=== PATIENT | male | born 1965 | race Caucasian/White ===

== ENCOUNTER 2016-08-13 05:50 | Day surgery (SDC) | payer OTHER ==
--- NOTE | 2016-08-12 14:40 | HP ---
DATE OF CLINIC: 08/07/2016 KALEE NERI : 1965 PLANNED PROCEDURE: Left Knee Arthroscopic Partial Medial and Partial Lateral Meniscectomies DATE OF SURGERY: August 13, 2016 SURGEON: Dominguez Walsh M.D. HISTORY OF PRESENT ILLNESS Kalee Neri is a 51 year old male. * Medication list reviewed with patient allergy list reviewed with patient. * Tried Physical Therapy Last visit was 05/08/16 @ [facility] in [place] * Has not tried NSAIDS * Has not tried Injections This is a 50-year-old male who complains of left knee pain. 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 He has had mechanical symptoms and pain in this knee since that time with multiple episodes of that kind of giving way and he has been concern that he is going to fall down some stairs. Most of his pain is over the medial side of his knee both along the medial joint line and the posterior medial knee he rates it a 5/10. He is taking some occasional anti-inflammatories without a lot of relief from his symptoms. He has also been to physical therapy at [facility] and again this has not given him significant relief. He has had a little bit of pain in the knee. Prior to this, but nothing like the mechanical symptoms that he is having at this point. After discussion and review of treatment options, both operative and non-operative, she has elected to proceed with surgery and presents today preoperatively. PAST MEDICAL AND SURGICAL HISTORY: His past medical history significant for type 2 diabetes which is fairly well controlled at this point. He has cut back on his meds recently. He also has a history of some numbness and tingling around this knee as well as a history of high blood pressure which is treated medically. CURRENT MEDICATION * Gemfibrozil 600 MG Tablet 1 once a day 30 days, 0 refills * Lisinopril 5 MG Tablet 1 once a day 30 days, 0 refills PAST MEDICAL/SURGICAL HISTORY Reported: Medical: Reported numbness Left knee, Reported tingling Left knee, Diabetes Mellitus Type 2, and Hypertension. Physical Trauma: Open reduction internal fixation ORIF Right wrist Apr 2010. SOCIAL HISTORY Social history changed. Behavioral: No tobacco use. Quit smoking 2004 smoked 2 packs per day for unknown amount of time. Smoking status: Former smoker. Work: Occupation [employer]. ALLERGIES * No Known Allergies FAMILY HISTORY Family medical history Father- Diabetes, Cancer, Hypertension REVIEW OF SYSTEMS No recent constitutional symptoms to include fevers and chills. No recent cardiovascular symptoms to include chest pain or palpitations. No recent respiratory symptoms to include shortness of breath or recent infections. PHYSICAL FINDINGS * Vitals taken 08/07/2016 02:44 pm BP-Sitting R 119/78 mmHg Pulse Rate-Sitting 99 bpm Temp-Oral 97.8 F Height 74.5 in Weight 257 lbs Body Mass Index 32.6 kg/m2 Body Surface Area 2.43 m2 Pain Level 2 Ears, Nose, Throat: * ENT: normal. Lungs: * Clear to auscultation. Cardiovascular: Heart Rate and Rhythm: * Normal. Abdomen: * Normal. Neurological: Motor: * Dominant Hand = Right Hand. Patient is a well-developed, well-nourished male in no acute distress. They are awake, alert and conversant throughout the encounter. CARDIOVASCULAR: Intact peripheral pulses on bilateral lower extremities. No significant edema on inspection of bilateral lower extremities. NEUROLOGIC: Patient had intact coordinated composite motion of the bilateral lower extremities and sensation intact to light touch in all distributions of bilateral lower extremities. PSYCHIATRIC: Patient was oriented to person, place and time and displayed appropriate mood and affect during the encounter. SKIN: Exam of the skin on bilateral lower extremities showed no significant scars, lesions, rashes or masses. FOCUSED MUSCULOSKELETAL EXAM: The patient is ambulating with minimal antalgia on the left side. He has a normal resting station of the bilateral hips, knees and ankles. He has no significant erythema or ecchymosis around the left knee, there is a very mild effusion. He has tenderness to palpation over the medial joint line in the posterior medial knee. He has a bit of tenderness with a patella grind and no significant tenderness on the lateral line. Range of motion is from 0 to 130 degrees of flexion with pain medially and maximal flexion. He has a Moy's test which shows increased pain and some mechanical symptoms along the medial side of the knee. He is stable to varus stress. He has some mild valgus pseudolaxity with a firm endpoint. He is stable to anterior posterior drawer and a Candace test. He has no pivot shift. He is able to perform a straight leg raise and he has 5/5 strength in flexion and extension at the knee. He has a warm and well perfused leg distally with intact sensation and a normal resting tone. TESTS * Test: CBC NO DIFF Report Date: 08/07/2016 WBC 7.7 10*3/mL MCV 89.2 fL RBC 5.20 10*6/uL MCH 30.2 pg MCHC 33.8 g/dL RDW 12.7 % PLATELET COUNT 185 10*3/mL HCT 46.4 % HGB 15.7 g/L * Test: COMPREHENSIVE METABOLIC PANEL Report Date: 08/07/2016 ALT/SGPT 25 U/L ALBUMIN 4.5 g/dL ALB/GLOB RATIO 1.9 BUN 15 mg/dL BUN/CREAT RATIO 19 CALCIUM 9.7 mg/dL GLUCOSE 89 mg/dL CREATININE 0.8 mg/dL SODIUM 138 meq/L POTASSIUM 4.1 meq/L CHLORIDE 104 meq/L CARBON DIOXIDE 26 meq/L ANION GAP 12 meq/L TOT PROTEIN 6.9 g/dL GLOBULIN 2.4 g/dL BILI,TOTAL 0.5 mg/dL AST/SGOT 21 U/L ALK PHOSPHATASE 70 U/L GFR 102 High IMAGING A review of his x-rays show some very mild permit narrowing as well as some pointing his tibial spines consistent with mild arthrosis. His MRI report is here today, which demonstrates a large posterior horn medial meniscus and some fraying degenerative changes of the lateral meniscus in addition to very early tricompartmental chondral changes. ASSESSMENT A 50-year-old male with a left knee medial meniscus tear from a traumatic event three months ago. THERAPY * Patient not eligible for fall risk assessment. PLAN * OTHER Percocet 5-325 MG TABS, Take 1-2 tablets by mouth every 4 hours as needed for pain, 14 days, 0 refills * Knee Arthroscopy (Left) with PMM and PLM CARE TEAM August Bañuelos, DO [facility] SURGICAL CONSENT We have discussed surgical options including left knee arthroscopic partial medial and lateral meniscectomies and non-operative management. The patient was counseled in detail regarding the diagnosis, treatment options available, prognosis of each treatment option and the potential risks and complications. The risks of surgery include, but are not limited to, anesthetic , neurovascular complications, pulmonary embolism, deep vein thrombosis, wound dehiscence, failure of any or all of the discussed procedures, infection of the joint or surrounding soft tissue, need for revision surgery, chronic pain, limitations in activities of daily living, inability to return to work, and loss of normal range of motion or functional use of the extremity. There is the possibility of failure over time that may require additional operative or non-operative treatment. The patient acknowledged that there are a number of perioperative risks not mentioned here and would still like to proceed. The patient is aware of and understands these risks, and wishes to proceed with the proposed surgical procedure and other procedures as indicated at the time of surgery. We will have the patient see their PCP for a preoperative medical risk assessment. The preoperative instructions were reviewed with the patient and all questions were answered. PB/sg
[~2016-08-13 05:50] MED LIST: IV START KIT ONE; LACTATED RINGERS 0 ML ONE
[2016-08-13] MEDS ORDERED: CEFAZOLIN SODIUM 2 GRAM DUPLEX 50 ML IV PRN (06:00)
[2016-08-13] MEDS ORDERED: CEFAZOLIN SODIUM 2 GRAM PREMIX 100 ML IV ONE (06:12)
[2016-08-13] MEDS ORDERED: SODIUM CHLORIDE 0.9% 1,000 ML ONE (06:12)
[2016-08-13] MEDS ORDERED: PROPOFOL 20 ML IV ONE (06:42)
[2016-08-13] MEDS ORDERED: FENTANYL 100 MCG/2 ML VIAL ONE ×2 (06:43→07:46)
[2016-08-13] MEDS ORDERED: MIDAZOLAM HCL 1 MG/ML 2ML VIAL ONE (06:43)
[2016-08-13] MEDS ORDERED: BUPIVACAINE 0.5% W/EPI SDV 30 ML VIAL ONE (06:52)
[2016-08-13] MEDS ORDERED: KETAMINE HCL 50 MG/ML 1 ML DOSE ONE (07:23)
[2016-08-13] MEDS ORDERED: PROMETHAZINE HCL 25 MG/ML VIAL IM PRN (07:52)
[2016-08-13] MEDS ORDERED: ONDANSETRON 4 MG/2ML 2 ML VIAL IV PRN ×2 (07:52→08:29)
[2016-08-13] MEDS ORDERED: MORPHINE SULFATE 4 MG/ML SYRINGE IV PRN (07:52)
[2016-08-13] MEDS ORDERED: SUCCINYLCHOLINE CHL 20 MG/ML DOSE ONE (07:53)
[2016-08-13] MEDS ORDERED: SODIUM CHLORIDE 0.9% 1,000 ML IV SCH (08:00)
[2016-08-13] MEDS: FENTANYL 100 MCG/2 ML VIAL IV PRN ×2 (08:17→08:23)
[2016-08-13] MEDS ORDERED: OXYCODONE/ACETAMINOPHEN 5/325 MG TABLET PO PRN (08:29)
[2016-08-13] MEDS ORDERED: DIPHENHYDRAMINE HCL 50 MG/1 ML VIAL IV PRN (08:29)
[2016-08-13] MEDS ORDERED: HYDROMORPHONE HCL 1 MG/ML SYRINGE IV PRN (08:29)
[2016-08-13] MEDS ORDERED: KETOROLAC TROMETHAMINE 30 MG/ML 1 ML VIAL IV PRN (08:29)
--- NOTE | 2016-08-13 08:29 | PCMBPN ---
Brief Post Op Note: Date of Procedure: 08/13/16 Start Time: 0730 Preoperative Diagnosis: 1. left knee medial meniscus tear Postoperative Diagnosis: 1. Same Procedure: left knee arthroscopy with partial medial meniscectomy Surgeon: Dominguez Walsh MD Assist: none Anesthesia: Rafael Zacarias (GETA) Findings: as above Condition: stable to PACU Complications: none IV Fluids: 900 mLs of LR Urine Output: 0 mLs Estimated Blood Loss: 5 mLs Tourniquet Time: 14 min at 250 mm Hg Specimens: none Implants: none Drains: none Dominguez Walsh MD
[2016-08-13] MEDS ORDERED: LACTATED RINGERS 1,000 ML IV SCH (08:30)
[2016-08-13] MEDS ORDERED: OXYCODONE/ACETAMINOPHEN 5/325 MG TABLET ONE (09:03)
--- NOTE | 2016-08-14 08:47 | OP ---
KALEE GONSALES : 1965 [id number] DATE OF PROCEDURE: August 13, 2016 PREOPERATIVE DIAGNOSIS: Left knee medial and lateral meniscus tears. POSTOPERATIVE DIAGNOSES: Left knee medial meniscus tear. PROCEDURE PERFORMED: Left knee arthroscopy with partial medial meniscectomy. SURGEON: Dominguez Walsh M.D. DELIVERY ROOM SUPERVISOR: Jeremias Chambers P.A.-C. ANESTHESIA: General intratrachial anesthesia per Rafael Zacarias. SPECIMENS: No material was sent to the laboratory. ESTIMATED BLOOD LOSS: 5 mL FLUIDS REPLACED: 900 mL of crystalloid. TOURNIQUET TIME: 14 minutes at 250 mmHg. URINE OUTPUT: None. IMPLANTS: None. DRAINS: No drains. INDICATIONS: This is a 51-year-old male who complains of pain and mechanical symptoms in the left knee that have been increasing over time and have not responded to a course of nonoperative measures. Patient has an exam and imaging studies which are consistent with the above. Given failure to improve with nonoperative measures patient elected to proceed with the above stated procedure. The risks, benefits and alternatives were discussed at length with that patient and they elected to proceed with surgery. Informed consent was obtained and documented in the chart and the patient was placed on the schedule the first available convenience. DESCRIPTION OF PROCEDURE: The patient was identified in the preoperative holding area where they were marked with an indelible marker by the operating surgeon. Patient was taken to the operating room where they were placed in the supine position the operating room table. A general anesthesia was induced, perioperative antibiotics were administered and a well padded pre-calibrated nonsterile tourniquet was placed on the left upper thigh. Patient was prepped and draped in the usual sterile fashion for surgery. An operative time out was performed and confirmed by all members of the operative team confirming the patient identity, procedure to be performed and the laterally for that procedure. All necessary personnel, equipment and implants were in place and there were no safety concerns. The leg was elevated and exsanguinated using the Esmarch bandage and the tourniquet was inflated to 250 mmHg. A standard lateral portal was created and the 30 degree viewing arthroscope was inserted into the knee. Optics were directed anteromedially and a medial portal was localized and created in a standard fashion. A probe was inserted through this medial portal and used in completion of the diagnostic arthroscopy with the following findings: Complex tear of the posterior horn of the medial meniscus, intact chondral surfaces in the medial and lateral femoral condyles, medial and lateral tibial plateau, ACL was intact, PCL was intact and the collateral ligaments were intact. There was no significant chondromalacia in the patellofemoral joint. Lateral meniscus was intact with just some very minor fraying at its margin. After completion of diagnostic arthroscopy the probe was exchanged for an arthroscopic biter and this was used to resect back the medial meniscus to a stable rim. This was then exchanged for arthroscopic resector shaver which was used to complete the partial medial meniscectomy. At this point we felt that we had addressed the patient's intra-articular pathology and so the camera and instruments were removed from the knee. The portal sites were closed with #4-0 Nylons; 20 mL of 0.5% Marcaine was injected into the knee for perioperative analgesia. A sterile dressing of Xeroform, fluffs, ABDs, web roll and then an LISA bandage from ankle to the thigh was applied. The tourniquet was deflated, the drapes were removed. The patient was awakened from anesthesia and extubated in the operating room without difficulty. Patient was transferred to a stretcher and taken postoperatively to the post anesthesia care unit in stable condition. There were no observed intraoperative complications during this procedure. CARLO/abel CC: [facility]
== END 2016-08-13 09:40 | disposition home or self-care (01) ==
LOC: SDC 05:50
PROVIDERS: ATTEND Orthopaedic Surgery
PROC: 0SBD4ZZ Excision of Left Knee Joint, Percutaneous Endoscopic Approach (ICD-10-PCS; principal; 2016-08-13)
DX: S83.242A Other tear of medial meniscus, current injury, left knee, initial encounter (principal); E11.9 Type 2 diabetes mellitus without complications; I10 Essential (primary) hypertension; Z87.891 Personal history of nicotine dependence; X58.XXXA Exposure to other specified factors, initial encounter; Y99.0 Civilian activity done for income or pay
CPT/HCPCS: 29881; J3010 ×3; A9270; J2250; J7030 ×2; J0690